=== PATIENT | female | born 1975 ===

== ENCOUNTER → 2018-04-23 08:28 | Day surgery (SDC) | payer BC ==
--- NOTE | 2018-04-17 20:32 | HP ---
AMENDED REPORT NOW INCLUDES COSIGNER DESIGNATION - ESIGNED BEFORE ADJUSTMENT CC: Ronald Mc MD; [facility] * ADMISSION HISTORY AND PHYSICAL: DATE OF ADMISSION: 04/23/18 ATTENDING SURGEON: Gus Garcia MD * (YESSI Aguilar, dictating). CHIEF COMPLAINT: Anorectal painful bleeding, possible fissure. HISTORY OF PRESENT ILLNESS: This is a generally healthy 42-year-old female who for the past year or so has experienced painful rectal bleeding. This occurs primarily at the time of bowel movement with descriptions of blood streaking on the stool as well as bright red blood on the toilet paper and occasional blood coloring the toilet water red. The bleeding occurs only at the time of bowel movement, though pain can occur between bowel movements and in fact, lately she has had more or less constant low level pain, which is exacerbated by bowel movement and activity, i.e., walking. She was seen by Gastroenterology and prescribed Anusol-HC suppository, which she tried. Thereafter, she noticed a painful lump externally, which has persisted since that time. She has maintained a bowel regimen including a stool softener, psyllium, and other fiber supplements. She was seen by Dr. Garcia on both 03/06/18 and 04/07/18. He had also prescribed nitroglycerin combined with lidocaine ointment, but this has also not provided any significant relief. His initial exam on 03/06/18 showed some granulation tissue at the 12 to 1 o'clock location with the patient positioned prone. There was a question of a fissure, though exam was incomplete secondary to pain. At the time of followup on 04/07/18, there seemed to be some increasing granulation and Dr. Garcia had some concern regarding a possibility of malignancy. Again, he was unable to do an adequate exam. Therefore, he discussed with the patient the indications for surgery, the risks, benefits, and alternatives. The patient would like to proceed as scheduled with anoscopy, possible biopsy, and possible Botox injection. Of note , there is a family history of precancerous polyps in both of her parents in their 50s. The patient has not undergone colonoscopy as yet, though it is something that was planned. The patient has no personal history of inflammatory bowel disease. PAST MEDICAL HISTORY: 1. Obesity. 2. Past migraines (not recently experiencing). 3. Chronic neck and shoulder pain. PAST SURGICAL HISTORY: Previous surgeries include: 1. x2. 2. x1. 3. [place] teeth extraction. No reported surgical or anesthesia complications. CURRENT MEDICATIONS: 1. Colace 3 times daily. 2. control pill once daily. 3. Nitroglycerin and lidocaine ointment combination b.i.d. to t.i.d. 4. Multivitamin once daily. 5. Psyllium supplement. 6. Citrucel supplement. 7. Ibuprofen typically ranging from 600 to 1200 mg total per day. 8. MiraLAX p.r.n. DRUG ALLERGIES: CODEINE (throat swelling) (the patient has tolerated Percocet without adverse effect). FAMILY HISTORY: Negative for anesthesia problems, bleeding or clotting disorders. SOCIAL HISTORY: The patient is . She has 2 children. 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 She denies use of tobacco. She drinks alcohol, maybe once monthly and denies any other recreational drug use. REVIEW OF SYSTEMS: General: No recent constitutional symptoms or acute illnesses other than described in the HPI. She states that her weight is up about 7 pounds over the past 9 months. HEENT: No problems reported. Cardiovascular: No chest pain, palpitations, history of hypertension, or heart murmur. Respiratory: No history of asthma, chronic cough, or shortness of breath. GI: No nausea or vomiting. Stools generally soft and formed. See also above per HPI. : No problems reported. 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 She is up-to-date within the past year for a pelvic exam and Pap smear, which she states was normal. Endocrine: No diabetes or thyroid dysfunction. Remainder of review of systems is negative. PHYSICAL EXAMINATION GENERAL: A well-nourished, somewhat obese female, in no acute distress. VITAL SIGNS: Height 64 inches, weight 184 pounds, BMI 31.6. Temperature 99.4, blood pressure 112/84, pulse 66, respirations 16. HEENT: Pupils equal and round, reactive. EOMs intact. No conjunctival pallor. Oropharynx: Teeth in good repair. No intraoral lesions. NECK: No thyromegaly, lymphadenopathy or masses. LUNGS: Clear to auscultation. No wheezes. HEART: Regular rate and rhythm. No murmur noted. BREASTS: Not examined. ABDOMEN: Soft, nontender to palpation. No palpable masses or organomegaly. GENITALIA: Not examined. RECTAL: Per Dr. Garcia's exam as noted above, not repeated. BACK: No spinous process or CVA tenderness. EXTREMITIES: No edema. NEUROLOGICAL: Grossly intact. SKIN: Warm and dry. No suspicious rashes or lesions noted. IMPRESSION: Painful anorectal bleeding; possible fissure. PLAN: Anoscopy; possible biopsy; possible Botox injection. YESSI AGUILAR [id number]/[facility] #: [id number] MTDMoncho
[~2018-04-23 08:28] MED LIST: Buffered Lidocaine 0.9% SYRIN* 5 ML/SYR SYRINGE INTRADERM ONE; Bupivacaine 0.25% W/EPI* 10 ML SDV ONE; Bupivacaine 0.5% PF 10 ML VIAL INJ ONE; Dexamethasone IV* 4 MG/ML 1 ML (4 MG) ONE; Famotidine IV* 10 MG/ML 2 ML (20 mg) IV ONE; Famotidine IV* 10 MG/ML 2 ML (20 mg) ONE; Lidocaine 2% JELLY* 6 ML JELLY TOPICAL ONE; Lidocaine 2% PF * 5 ML VIAL ONE; Midazolam* 1 MG/ML 5 ML VIAL (5 MG) ONE; Naloxone* 0.4 MG/ML 1 ML VIAL IV PRN; Onabotulinimtoxina 100 UNITS* VIAL ONE; Ondansetron ODT TAB* 4 MG ONE; Ondansetron ODT TAB* 4 MG PO PRN; Propofol* 10 MG/ML 20 ML BTL IV PUSH ONE; Succinylcholine* 20 MG/ML 10 ML VIAL ONE; ceFAZolin 2 GM PREMIX (*) 2 GM/50 ML BAG IVPB ONE; fentaNYL* 50 MCG/ML 2 ML VIAL (100 MCG VIAL) IV PRN; fentaNYL* 50 MCG/ML 2 ML VIAL (100 MCG VIAL) ONE
[2018-04-23 12:07] VITALS: BP 113/76
--- NOTE | 2018-04-24 02:39 | OP ---
CC: Gus Garcia MD; Ronald Mc MD; [facility] OPERATIVE NOTE: DATE OF OPERATION: 04/23/18. DATE OF : 75. SURGEON: Gus Garcia MD TRUST MANAGER: None. ANESTHESIOLOGIST: Dr. Agosto. ANESTHESIA: General anesthetic, local infiltration. PRE-OP DIAGNOSIS: Painful bleeding anal mass. POST-OP DIAGNOSIS: Bleeding anal mass. OPERATIVE PROCEDURE: Anoscopy and biopsy of anal mass. DESCRIPTION OF PROCEDURE: The patient was given general anesthetic and placed in the prone jackknife position with the buttocks upward and taped apart. The area was prepped with Betadine and draped in a sterile fashion. A Kasie Hugger warmer and intravenous antibiotics were utilized as well as stocki ngs. Anoscopy was carried out and there is a somewhat friable mass posteriorly that is roughly 1 x 1 .5 cm in size. There is no underlying fissure or fistula. There is no distinct mass internal to thi s. Because this clearly does not represent hypertrophic granulation surrounding a fissure, it was fe lt that biopsy was warranted. Therefore, excisional biopsy is carried out just at the base of the les ion while away from the sphincter muscle. Electrocautery was used for hemostasis. The specimen was sent to laboratory. She tolerated this well. Local anesthetic was administered and gauze packing wa s placed in the anal canal. She was awakened and brought to recovery in good condition. No complica tions. No drains. Pathologic specimen as above. Sponge and instrument counts correct. Estimated b lood loss is 10 mL. [id number]/[facility] #: [id number]
== END | disposition home or self-care (01) ==
LOC: OR 08:28
PROVIDERS: ATTEND Surgery
DX: D01.3 Carcinoma in situ of anus and anal canal (principal); K62.5 Hemorrhage of anus and rectum; F41.8 Other specified anxiety disorders; E66.9 Obesity, unspecified; M54.2 Cervicalgia; M25.519 Pain in unspecified shoulder
CPT/HCPCS: 81025; 88305; 88331; 88342; A9270-GY; J0330; J0585; J0690; J1100; J2250; J2704; J3010

== ENCOUNTER 2018-07-22 10:58 | Day surgery (SDC) | payer BC ==
[~2018-07-22 10:58] MED LIST changes: -Bupivacaine 0.25% W/EPI* 10 ML SDV ONE; -Bupivacaine 0.5% PF 10 ML VIAL INJ ONE; -Dexamethasone IV* 4 MG/ML 1 ML (4 MG) ONE; -Famotidine IV* 10 MG/ML 2 ML (20 mg) IV ONE; -Famotidine IV* 10 MG/ML 2 ML (20 mg) ONE; -Lidocaine 2% JELLY* 6 ML JELLY TOPICAL ONE; -Lidocaine 2% PF * 5 ML VIAL ONE; -Midazolam* 1 MG/ML 5 ML VIAL (5 MG) ONE; -Naloxone* 0.4 MG/ML 1 ML VIAL IV PRN; -Onabotulinimtoxina 100 UNITS* VIAL ONE; -Ondansetron ODT TAB* 4 MG ONE; -Ondansetron ODT TAB* 4 MG PO PRN; -Propofol* 10 MG/ML 20 ML BTL IV PUSH ONE; -Succinylcholine* 20 MG/ML 10 ML VIAL ONE; -ceFAZolin 2 GM PREMIX (*) 2 GM/50 ML BAG IVPB ONE; -fentaNYL* 50 MCG/ML 2 ML VIAL (100 MCG VIAL) IV PRN; -fentaNYL* 50 MCG/ML 2 ML VIAL (100 MCG VIAL) ONE
[2018-07-22] MEDS ORDERED: Buffered Lidocaine 0.9% SYRIN* 5 ML/SYR SYRINGE ONE (11:00)
[2018-07-22] MEDS ORDERED: fentaNYL* 50 MCG/ML 2 ML VIAL (100 MCG VIAL) ONE (13:54)
[2018-07-22] MEDS ORDERED: Midazolam* 1 MG/ML 5 ML VIAL (5 MG) ONE (13:54)
[2018-07-22] MEDS ORDERED: Lidocaine 2% JELLY* 6 ML JELLY TOPICAL ONE (14:48)
[2018-07-22] MEDS ORDERED: Propofol* 10 MG/ML 20 ML BTL IV PUSH ONE (14:59)
[2018-07-22] MEDS ORDERED: Naloxone* 0.4 MG/ML 1 ML VIAL IV PRN (15:38)
[2018-07-22 16:41] VITALS: BP 104/59
--- NOTE | 2018-07-24 15:26 | PRO ---
PROCEDURE REPORT: DATE OF PROCEDURE: 07/22/18 PROCEDURE: Colonoscopy with biopsy. INDICATIONS: Rectal bleeding, alternating diarrhea and constipation, family history of polyps. 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 She also tells me that her mother and father both had polyps in their 50s. It does not appear that either of her parents had advanced adenomas based on the description of the interval being 5 years for at least the mother, but I am unable to confirm. PREVIOUS COLONOSCOPY: None. MEDICATIONS GIVEN: By Anesthesia. DESCRIPTION OF PROCEDURE: Full disclosure of risks was reviewed with the patient as detailed on the consent form. The patient was placed in the left lateral decubitus position and monitored with continuous pulse oximetry, capnography, interval blood pressure monitoring, and direct observation. After anorectal examination was performed, the adult colonoscope was inserted into the rectum and advanced under direct vision to the terminal ileum. The cecum was fully inflated allowing complete view including the medial wall between the IC valve and the appendiceal orifice. Quality of the prep was very good. A careful inspection was made as the colonoscope was withdrawn. Retroflexed view of the rectum was performed. Findings and interventions are as described below. The patient tolerated the procedure well and was recovered in the GI recovery area. FINDINGS: - The terminal ileal mucosa was intubated for 10 cm. Normal in appearance. - There was a slightly thickened and erythematous fold in the rectum, which may be related to prep effect. Biopsies obtained from this particular area. Otherwise, the colon was normal without evidence of erythema, edema, erosion, or ulceration. Biopsies were taken at random from the right colon to the rectum to rule-out microscopic colitis. - A 2-mm rectal polyp was removed with biopsy forceps. - Retroflexed view of the rectum noted small internal hemorrhoids. - Anorectal exam was notable for an irritated and erythematous anal canal. IMPRESSION: 1. 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 2. A very slightly thickened and erythematous rectal fold, possibly secondary to prep effect. Biopsied. Otherwise, colon and distal terminal ileum were normal in appearance without evidence of inflammation. 3. Small rectal polyp, removed as above. 4. Small internal hemorrhoids. FOLLOWUP: 1. Await pathology. 2. The patient will continue to follow with Colorectal Surgery in [place] for treatment of her AIN. 3. Follow-up in GI clinic with YESSI Eden, to discuss the patient's chronic GI symptoms. 4. Repeat colonoscopy in 5-10 years for colon cancer screening assuming rectal polyp is hyperplastic. Patient's parents have a history of colon polyps in their 50's, although there is no clear evidence to support that either had advanced adenomas. [id number]/[facility] #: [id number] WILL
== END 2018-07-22 17:43 | disposition home or self-care (01) ==
LOC: OR 10:58
PROVIDERS: ATTEND Internal Medicine Gastroenterology
DX: K62.5 Hemorrhage of anus and rectum (principal); K59.00 Constipation, unspecified; K64.8 Other hemorrhoids; K62.1 Rectal polyp; K62.82 Dysplasia of anus; Z83.71 Family history of colonic polyps; F41.9 Anxiety disorder, unspecified
CPT/HCPCS: 81025; 88305; J2250; J2704; J3010